=== PATIENT | female | born 1950 | race Caucasian/White ===

== ENCOUNTER 2019-05-02 06:37 | Emergency (ER) | payer MEDICARE, SELFPAY ==
[2019-05-02 06:38] VITALS: BP 146/74; PULSE 93; RESP 18; TEMP 36.7; O2SAT 91; BMI 24.1
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
[2019-05-02 07:42] VITALS: BP 132/62; PULSE 98; RESP 18; O2SAT 93
[2019-05-02 08:35] VITALS: BP 130/98; PULSE 80; RESP 18; TEMP 36.7; O2SAT 100
== END 2019-05-02 09:55 | disposition home or self-care (01) ==
PROVIDERS: Emergency Provider Emergency Medicine; Family Provider Nurse Practitioner Family; PCP Nurse Practitioner Family
DX: J34.89 Other specified disorders of nose and nasal sinuses (principal); Y04.2XXA Assault by strike against or bumped into by another person, initial encounter; F17.210 Nicotine dependence, cigarettes, uncomplicated
CPT/HCPCS: 70450; 70486; 99281

== ENCOUNTER 2022-11-29 12:36 | Outpatient (CLI) | payer MEDICARE, MEDICAID, SELFPAY ==
--- NOTE | 2022-11-29 13:02 | MM_ITS ---
WS: [id number] BILATERAL 3D TOMOSYNTHESIS DIGITAL SCREENING MAMMOGRAPHY WITH CAD CLINICAL INFORMATION: SCREENING HISTORY: Screening mammogram. No current complaints. COMPARISON: 2020 TECHNIQUE: Bilateral CC and MLO views. FINDINGS: Scattered fibroglandular densities bilaterally. No suspicious focal mass, asymmetry, calcifications, or architectural distortion. No evidence of malignancy. A few incidental punctate calcifications. MM/[place] [id number] IMPRESSION: BI-RADS: 2-Benign FOLLOW UP: 1 Year Follow-up Recommend return to annual screening mammography.
== END 2022-11-29 12:37 | disposition home or self-care (01) ==
LOC: RAD 12:40 → MOBLMAM 13:01
PROVIDERS: PCP Family Medicine; Visit Provider Family Medicine
DX: Z12.31 Encounter for screening mammogram for malignant neoplasm of breast (principal)
CPT/HCPCS: 77063; 77067

== ENCOUNTER 2023-11-02 08:14 | Emergency (ER) | payer MEDICARE, MEDICAID, SELFPAY ==
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
--- NOTE | 2023-11-02 08:26 | ED_ITS ---
HPI - Abdominal Pain 2 General: Chief Complaint: Back Pain/Injury Stated Complaint: back pain, abd pain Time Seen by Provider: 11/02/23 08:21 Source: patient Mode of arrival: ambulatory Limitations: no limitations History of Present Illness: 73-year-old female who states she has be en having diffuse abdominal pain for the last week. States pains been sharp in nature she rates it a 6 out of 10 currently she denies any fever denies any diarrhea states pain seem to be worse with movement. Denies any chest pain or shortness of breath Associated Symptoms: Denies chills, diarrhea, dysuria, fever(s), nausea and vomiting Review of Systems 2 Const: Denies: fever(s), chills, body aches or change in appetite ENMT: Denies: throat pain or dental pain Card: Denies: chest pain Resp: Denies: dyspnea GI: Reports: abdominal pain; Denies: nausea, vomiting or diarrhea : Denies: dysuria Musc: Denies: neck pain or back pain Skin/Breast: Denies: rash Neuro: Denies: headache(s) PFSH ED 2 PFSH: Family History Denies family history of Anesthesia complication Bleeding disorder Social History Smoking and tobacco/nicotine status: current every day tobacco/nicotine user Physical Exam 2 Const: COMMON NORMALS: no acute distress, patient oriented x3 and healthy appearing HENMT: COMMON NORMALS: normocephalic and atraumatic HEAD & SCALP: n ormocephalic and atraumatic Neck/C-Spine: COMMON NORMALS: full ROM and supple Chest: COMMONS NORMALS: normal inspection of the chest Resp: COMMON NORMALS: normal respiratory effort, No retractions, No use of accessory muscles and clear to auscultation bilaterally AUSCULTATION: clear to auscultation bilaterally Cardio: COMMON NORMALS: regular rate, regular rhythm and No murmurs present (Cardio) RATE: regular rate RHYTHM: regular rhythm GI: COMMON NORMALS: Normal to inspection, nondistended, normoactive bowel sounds present, Soft to palpation and no masses PALPATION: Yes Soft to palpation OTHER: diffuse mild tenderness Extremity: COMMON NORMALS: normal to inspection and full ROM Neuro: COMMON NORMALS: patient oriented x3, moves all extremities and no focal motor deficits Psych: COMMON NORMALS: mental status grossly normal, Normal thought process present and cooperative THOUGHT PROCESS: Normal thought process present Skin: COMMON NORMALS: no rashes or lesions noted and no wounds GENERAL SKIN EXAM: no rashes or lesions noted Course 2 Vital Signs: Vital signs: Vital Signs Temperature 98.2 F 11/02/23 08:27 Pulse Rate 78 11/02/23 10:33 Respiratory Rate 18 11/02/23 08:27 Blood Pressure 159/76 11/02/23 10:33 Pulse Oximetry 91 11/02/23 10:33 Oxygen Delivery Me thod Room Air 11/02/23 09:44 MDM - Abdominal Pain Medical Decision Making Patient presents here with back abdominal pain is likely muscular in nature her blood work CT scan here are all normal she stable for discharge she is follow-up with PCP and return if worsening she understands agrees to plan. Medical Records I reviewed the patient's medical records. Lab Data I reviewed the patient's lab results. 11/02/23 08:48 11/02/23 08:48 Labs/Radiology: Radiology Impressions Abdomen/Pelvis CT 11/02/23 08:24 IMPRESSION: No acute intra-abdominal process. COMMENTS: Consistent with the [employer]'s Incidental Findings Committee white paper (J Am [employer] Radiol 2018): Any incidental renal lesion less than 1 cm or classified as too small to characterize, or any incidental cystic renal lesion characterized as simple-appearing, is likely benign. No follow-up imaging is recommended for these lesions per consensus recommendations based on imaging criteria. Laboratory Results WBC 11.09 10^3/uL (3.29-11.43) 11/02/23 08:48 RBC 6.34 10^6/uL (3.85-5.65) H 11/02/23 08:48 Hgb 16.20 g/dL (11.27-16.99) 11/02/23 08:48 Hct 50.4 % (36-47) H 11/02/23 08:48 MCV 79.5 fl (85-98) L 11/02/23 08:48 MCH 25.6 pg (27-33) L 11/02/23 08:48 MCHC 32.1 g/dL (30-55) 11/02/23 08:48 RDW 13.3 % (12.1-15.1) 11/02/23 08:48 Plt Count 295 10^3/cmm (157-399) 11/02/23 08:48 MPV 8.5 fL (7.4-10.4) 11/02/23 08:48 Neut % (Auto) 68.3 % 11/02/23 08:48 Lymph % (Auto) 23.3 % 11/02/23 08:48 [place] % (Auto) 6.6 % 11/02/23 08:48 Eos % (Auto) 1.1 % 11/02/23 08:48 Baso % (Auto) 0.5 % 11/02/23 08:48 Neut # (Auto) 7.58 10^3/uL (1.8-7.7) 11/02/23 08:48 Lymph # (Auto) 2.6 10^3/uL (0.8-4.8) 11/02/23 08:48 [place] # (Auto) 0.7 10^3/uL (0.2-0.9) 11/02/23 08:48 Eos # (Auto) 0.1 10^3/uL (0.0-0.8) 11/02/23 08:48 Baso # (Auto) 0.1 10^3/uL (0.0-0.1) 11/02/23 08:48 Nucleated RBC % (auto) 0 % 11/02/23 08:48 Nucleated RBCs # 0.0 /100WBC 11/02/23 08:48 Sodium 132 mmol/L (136-145) L 11/02/23 08:48 Potassium 3.7 mmol/L (3.5-5.1) 11/02/23 08:48 Chloride 95 mmol/L (98-107) L 11/02/23 08:48 Carbon Dioxide 25 mmol/L (22-29) 11/02/23 08:48 Anion Gap 15.7 (5-19) 11/02/23 08:48 BUN 8 mg/dL (8-23) 11/02/23 08:48 Creatinine 0.7 mg/dL (0.5-0.9) 11/02/23 08:48 GFR Calculation Not Reportable 11/02/23 08:48 Glucose 157 mg/dL (65-115) H 11/02/23 08:48 Calculated Osmolality 276 mOsm/kg (285-295) L 11/02/23 08:48 Calcium 9.3 mg/dL (8.5-10.5) 11/02/23 08:48 Total Bilirubin 0.3 mg/dL (0.15-1.2) 11/02/23 08:48 AST 16 U/L (0-32) 11/02/23 08:48 ALT 17 U/L (0-33) 11/02/23 08:48 Alkaline Phosphatase 171 U/L (35-105) H 11/02/23 08:48 Troponin T Baseline 7 ng/L (0-10) 11/02/23 08:48 Total Protein 8.1 g/dL (6.6-8.7) 11/02/23 08:48 Albumin 4.2 g/dL (3.5-5.2) 11/02/23 08:48 Globulin 3.9 g/dL (1.3-4.6) 11/02/23 08:48 Lipase 25 U/L (13-60) 11/02/23 08:48 Urine Color Yellow (Yellow) 11/02/23 08:33 Urine Appearance Clear (CLEAR) 11/02/23 08:33 Urine pH 6 (5-7) 11/02/23 08:33 Ur Specific [place] 1.015 (1.005-1.030) 11/02/23 08:33 Urine Protein Neg (Negative) 11/02/23 08:33 Urine Glucose (UA) Norm (Normal) 11/02/23 08:33 Urine Ketones Negative (Negative) 11/02/23 08:33 Urine Blood Neg (Negative) 11/02/23 08:33 Urine Nitrate Negative (Negative) 11/02/23 08:33 Urine Bilirubin Neg (Negative) 11/02/23 08:33 Urine Urobilinogen Norm mg/dL (Negative) 11/02/23 08:33 Ur Leukocyte Esterase Negative (Negative) 11/02/23 08:33 All radiology interpretation(s) finalized by discharge EKG Data EKG 1: I personally reviewed and interpreted this EKG as follows: EKG interpretation date: 11/02/23 EKG interpretation time: 08:28 Interpretation: nsr hr [address] elevation qrs 102 qtc 392 Discharge Plan Discharge Patient Disposition: Home Clinical Impression: Abdominal pain Condition: Stable Prescriptions: No Action tramadol 50 mg tablet 50 mg PO BID PRN omeprazole 20 mg capsule,delayed release(DR/EC) 20 mg PO ONCE pravastatin 20 mg tablet 20 mg PO ONCE lisinopril 20 mg tablet 20 mg PO ONCE albuterol sulfate 2.5 mg /3 mL (0.083 %) solution for nebulization 2.5 mg INHALATION QID PRN montelukast 10 mg tablet 10 mg PO ONCE ipratropium bromide 0.02 % solution 2.5 ml INHALATION Q12H PRN venlafaxine [Effexor XR] 75 mg capsule,extended release 24hr 75 mg PO QAM Discharge Orders: Discharge ED (Routine); Ordered 11/02/23 Ordered By: Aminta Antunez Referrals: Alcides Guzman [Primary Care Provider] - 4-7 days Discharge Diet: Advance as tolerated Discharge Activity: Resume usual activity Patient Instructions: Abdominal Pain (ED) Coding Level of Care Code ED 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
[2023-11-02 08:27] VITALS: BP 190/91; PULSE 92; RESP 18; TEMP 36.8; O2SAT 93; BMI 26.6
--- NOTE | 2023-11-02 08:28 | ECG_ITS ---
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 Measurements Intervals [place] Rate: 91 P: 71 TN: 216 QRS: 87 QRSD: 102 T: 0 QT: 343 QTc: 423 Interpretive Statements SINUS RHYTHM WITH FIRST DEGREE AV BLOCK INCOMPLETE RIGHT BUNDLE BRANCH BLOCK [90+ ms QRS DURATION, TERMINAL R IN V1/V2, 40+ ms S IN I/aVL/V4/V5/V6] SEPTAL MYOCARDIAL INFARCTION , PROBABLY OLD [40+ ms Q WAVE IN V1/V2] Compared to ECG 08/10/2017 10:20:50 Incomplete right bundle-branch block now present Myocardial infarct finding still present Electronically Signed On 11-02-2023 19:20:03 CDT by Tevin Ayon M.D. [id number]
[2023-11-02 08:34] LABS: Add Urine Microscopic? NO; Charge for UA Resulting for Rev
[2023-11-02 08:37] LABS: Bilirubin Urine Neg (Negative); Blood Urine Neg (Negative); Glucose Urine UA Norm (Normal); Ketones Urine Negative (Negative); Leukocyte Esterase Urine Negative (Negative); Nitrate Urine Negative (Negative); Protein Urine Neg (Negative); Specific Gravity, Urine 1.015 (1.005-1.030); Urine Appearance Clear (CLEAR); Urine Color Yellow (Yellow); Urobilinogen Urine Norm (Negative); pH Urine 6 (5-7)
[2023-11-02] MEDS: sodium chloride 0.9% 1,000 ML 999 ML IV (08:48)
[2023-11-02] MEDS: ondansetron 2 mg/ML SDV 2 mL 4 MG IVP (08:48)
[2023-11-02] MEDS: morphine 4 mg/mL SDV 1 mL IVP (08:49)
[2023-11-02 08:54] LABS: Basophils # 0.1 10^3/uL (0.0-0.1); Basophils % 0.5 %; Eosinophils # 0.1 10^3/uL (0.0-0.8); Eosinophils % 1.1 %; Hematocrit 50.4 % (36-47); Lymphocytes # 2.6 10^3/uL (0.8-4.8); Lymphocytes % 23.3 %; Mean Corpuscular HGB Conc 32.1 g/dL (30-55); Mean Corpuscular Hemoglobin 25.6 pg (27-33); Mean Corpuscular Volume 79.5 fl (85-98); Mean Platelet Volume 8.5 fL (7.4-10.4); Monocytes # 0.7 10^3/uL (0.2-0.9); Monocytes % 6.6 %; Neutrophils # 7.58 10^3/uL (1.8-7.7); Neutrophils % 68.3 %; Nucleated Red Blood Cells % 0 %; Platelet Count 295 10^3/cmm (157-399); Red Blood Count 6.34 10^6/uL (3.85-5.65); Red Cell Distribution Width 13.3 % (12.1-15.1); White Blood Count 11.09 10^3/uL (3.29-11.43)
[2023-11-02 09:14] LABS: Alanine Aminotransferase 17 U/L (0-33); Albumin Level 4.2 g/dL (3.5-5.2); Alkaline Phosphatase 171 U/L (35-105); Anion Gap 15.7 (5-19); Aspartate Amino Transferase 16 U/L (0-32); Blood Urea Nitrogen 8 mg/dL (8-23); Calcium 9.3 mg/dL (8.5-10.5); Carbon Dioxide 25 mmol/L (22-29); Chloride 95 mmol/L (98-107); Creatinine Clr Calc Pharmacy 63.4495; Globulin 3.9 g/dL (1.3-4.6); Glucose 157 mg/dL (65-115); Lipase 25 U/L (13-60); Osmolality Calculated 276 mOsm/kg (285-295); Potassium 3.7 mmol/L (3.5-5.1); Sodium 132 mmol/L (136-145); Total Bilirubin 0.3 mg/dL (0.15-1.2); Total Protein 8.1 g/dL (6.6-8.7)
[2023-11-02] MEDS: iohexol 350 mg/mL 500 mL Btl (per mL) IV (09:20)
[2023-11-02 09:44] VITALS: BP 197/66; PULSE 91; O2SAT 92
[2023-11-02 10:00] VITALS: BP 165/66; PULSE 80; O2SAT 91
[2023-11-02 10:06] LABS: Troponin(5th) Baseline 7 ng/L (0-10)
[2023-11-02 10:27] VITALS: BP 159/76; PULSE 78; O2SAT 91
[2023-11-02 10:33] VITALS: BP 159/76; PULSE 78; O2SAT 91
== END 2023-11-02 10:33 | disposition home or self-care (01) ==
PROVIDERS: Emergency Provider Emergency Medicine; PCP Family Medicine
DX: R10.9 Unspecified abdominal pain (principal)
CPT/HCPCS: 74177; 80053; 81003; 83690; 84484; 85025; 93005; 96374; 96375; 99285; J2270; J2405; J7030; Q9967